=== PATIENT | female | born 1935 | race Caucasian/White ===

== ENCOUNTER 2018-04-21 03:49 | Emergency (ER) | payer MEDICARE, OTHER ==
[~2018-04-21] VITALS: Ht 165.1 cm; Wt 43.6 kg
[~2018-04-21 03:49] MED LIST: APIX2.5T PO; ATOR10TA84 PO; CARV12 PO; DOCU250C91 PO; FAMO20 PO; LEVO25TA9 PO; OLAN10TA3 PO; VALP250 PO
[2018-04-21] MEDS ORDERED: HYDR-309 PO (03:59)
[2018-04-21] MEDS ORDERED: PANT40TA25 PO (03:59)
[2018-04-21 04:04] LABS: GLUCOSE,POINT OF CARE 88 MG/DL (70-110)
[2018-04-21 05:22] VITALS: BP 145/71
== END 2018-04-21 05:24 | disposition home or self-care (01) ==
LOC: EMS 03:49
DX: S00.83XA Contusion of other part of head, initial encounter (principal); E03.9 Hypothyroidism, unspecified; I50.9 Heart failure, unspecified; F31.9 Bipolar disorder, unspecified; Z79.891 Long term (current) use of opiate analgesic; Z79.01 Long term (current) use of anticoagulants; Z79.899 Other long term (current) drug therapy; Z86.73 Personal history of transient ischemic attack (TIA), and cerebral infarction without residual deficits; W06.XXXA Fall from bed, initial encounter; Y93.89 Activity, other specified; Y92.89 Other specified places as the place of occurrence of the external cause; Y99.8 Other external cause status
CPT/HCPCS: 99283